=== PATIENT | female | born 1970 | race Two or more races ===

== ENCOUNTER 2018-02-18 09:13 | Outpatient (CLI) | payer OTHER ==
[~2018-02-18 09:13] MED LIST: AMOX1TAB12 PO; INTESTINEX1 CAP PO; KETO10TA2 PO; NASONEX17 GM NS; SYNTHROID75 MCG; TAMS0.4C PO; TRILIPIX135 MG; VITAMIN D400 UNI3
== END 2018-02-18 09:27 | disposition home or self-care (01) ==
LOC: MAMO-SONO 09:13 → RAD 09:15 → MAMO-SONO 09:15
DX: Z12.31 Encounter for screening mammogram for malignant neoplasm of breast (principal); N61.0 Mastitis without abscess; E04.1 Nontoxic single thyroid nodule

== ENCOUNTER 2021-09-04 09:11 | Emergency (ER) | payer OTHER ==
[~2021-09-04] VITALS: Ht 154.9 cm; Wt 74.4 kg
[2021-09-04] MEDS ORDERED: MUPIROCIN15 GM TOP (12:38)
[2021-09-04] MEDS ORDERED: CIPRO500 MG PO (12:38)
[2021-09-04] MEDS ORDERED: ORPHENADRINE C100 MG PO (12:38)
[2021-09-04] MEDS ORDERED: KETO10TA2 PO (12:38)
== END 2021-09-04 14:27 ==
LOC: ER 09:11
DX: S01.90XA Unspecified open wound of unspecified part of head, initial encounter (principal); S01.21XA Laceration without foreign body of nose, initial encounter; S01.81XA Laceration without foreign body of other part of head, initial encounter; W18.30XA Fall on same level, unspecified, initial encounter; Y92.019 Unspecified place in single-family (private) house as the place of occurrence of the external cause; E03.9 Hypothyroidism, unspecified

== ENCOUNTER → 2021-09-07 08:00 | Outpatient (CLI) | payer OTHER ==
[~2021-09-07 08:00] MED LIST changes: +CIPRO500 MG PO; +MUPIROCIN15 GM TOP; +ORPHENADRINE C100 MG PO
== END | disposition home or self-care (01) ==
LOC: LAB 08:00 → CIR.AMB 09-10 07:05 → EDSTATUS 09-10 17:34
PROVIDERS: ATTEND Otolaryngology
DX: U07.1 COVID-19 (principal); J34.3 Hypertrophy of nasal turbinates; R09.81 Nasal congestion; J34.2 Deviated nasal septum